=== PATIENT | male | born 1955 | race Caucasian/White ===

== ENCOUNTER → 2017-11-10 | Outpatient (CLI) | payer OTHER, SELFPAY ==
[~2017-11-10] MED LIST: ASPIR 8181 MG PO; ASPIRIN EC325 M1; ASPIRIN325 PO; ATORVASTATIN CA40 MG PO; B-12500 MCG; CYMBALTA60 MG PO; DOCUSATE SODIU100 MG; ENOXAPARIN30 MG/0.3; FOLIC ACID 1 MG1 MG; LISINOPRIL-HCT1 EAC1 PO; LYRICA300 MG PO; NEURONTIN600 MG PO; NITROGLYCERIN0.4 MG SUBLING; OXYCONTIN10 M1; OXYCONTIN20 M1 PO; OXYIR 5 MG CAPSU5 M1; PLAVIX 75 MG TA75 M1 PO; PROTONIX 20 MG20 M1 PO; TOPROL XL25 MG PO; TYLENOL325 MG PO; ZESTORETIC 20-1 EAC3 PO
--- NOTE | 2017-11-19 11:01 | SLEEP ---
[address] [address] SLEEP STUDY REPORT Name: PRASAD COOK Room: [facility]#: [id number] Admission: 11/10/17 Attend Phys: Oral Jones MD Discharge: Date of : 57 Report #: [id number] THIS REPORT FOR: //name// CC: Oral Jones This study has been reviewed in its entirety by a board certified sleep specialist DATE OF SERVICE: 11/10/2017 SPLIT NIGHT POLYSOMNOGRAPHY REQUESTING PHYSICIAN: Oral Jones MD. Polysomnography was performed using the split night protocol. The patient has a known history of obstructive sleep apnea and has been on CPAP. He continues to have difficulty falling asleep with daytime sleepiness. We have some nocturnal awakenings. Does not feel that his machine is working adequately. The patient's weight is 258 pounds with a BMI of 44.3. [place] sleepiness scale was 8/24. Total study time was 507 minutes. Total sleep time was 317 minutes. Sleep efficiency overall was 63%. 15% of the time was spent in REM sleep. The total diagnostic portion was a sleep time of 108 minutes. Sleep efficiency was 64%. He had no time in REM sleep during the diagnostic portion. During the diagnostic portion, there were no central apneas noted. He had a total of 18 obstructive apneas. There were total of 22 hypopneas. This resulted in apnea-hypopnea index of 22. Majority of the time was spent in the supine position. With the abnormalities noted, CPAP titration was then done. CPAP was initiated at 8 cm of water pressure and was titrated up to 14 cm of water pressure. At that level, there were no apneas noted. There was 1 hypopnea. This resulted in apnea-hypopnea index of 0.7. He did have some respiratory related arousals noted. O2 saturations were in the 90s. During the diagnostic portion, there were total of 96 periodic limb movements with 16 associated with an arousal. This resulted in a PLMS arousal of 8.9. However, during the CPAP titration, the number of periodic limb movements fell to 6 with only 2 associated with an arousal. During the diagnostic portion, O2 saturations generally remained greater than 90%. This was also true [place] [address] SLEEP STUDY REPORT Name: PRASAD COOK Room: [facility]#: [id number] Admission: 11/10/17 Attend Phys: Oral Jones MD Discharge: Date of : 57 Report #: [id number] IMPRESSION: 1. A split night study reveals at least moderate to severe sleep apnea with apnea-hypopnea index of 22. This may be underestimated given the lack of REM sleep. Use of CPAP at 14 cm of water pressure appears to be optimum for him. 2. Elevated periodic limb movements noted. However, these are improved with the use of the CPAP. RECOMMENDATIONS: 1. CPAP at 14 cm of water pressure. Note during the study, a medium F and P Simplus full face mask was utilized. There was a ramp of 3 with a C-flex of 10 noted. 2. Medically supervised weight loss program to achieve and maintain ideal body weight. <ELECTRONICALLY SIGNED> By: Janny Esparza MD 11/19/17 1101 0921 [id number] Esparza MD /nt
== END ==
LOC: M.SLEEPLAB 19:29
DX: G47.33 Obstructive sleep apnea (adult) (pediatric) (principal); J06.9 Acute upper respiratory infection, unspecified; I10 Essential (primary) hypertension; I25.10 Atherosclerotic heart disease of native coronary artery without angina pectoris; E78.5 Hyperlipidemia, unspecified; F17.210 Nicotine dependence, cigarettes, uncomplicated

== ENCOUNTER → 2018-05-12 | Outpatient (CLI) | payer OTHER | LOC: M.RAD 11:47 | DX: R07.1 Chest pain on breathing (principal) ==

== ENCOUNTER → 2019-01-12 | Day surgery (SDC) | payer OTHER, SELFPAY ==
[~2019-01-12] MED LIST changes: +HYDROCODONE-ACE15 ML PO
--- NOTE | ~2019-01-12 | OP ---
[facility] [address] [place] [address] OPERATIVE REPORT Name: PRASAD COOK ALDAIR Room: [facility].#: [id number] Admission: 01/12/19 Attend Phys: Herman Blum MD Discharge: Date of : 57 Report #: [id number] THIS REPORT FOR: //name// CC: Oral Blum DICTATED BY: Dougie Hsu DO DATE OF SERVICE: 01/12/2019 PREOPERATIVE DIAGNOSIS: Obesity and history of laparoscopic gastric band. POSTOPERATIVE DIAGNOSIS: Obesity and history of laparoscopic gastric band. SURGEON: Herman Blum M.D. [employer]ER [employer]: Dougie Hsu, PGY-4. OPERATION: Laparoscopic gastric band excision and port excision. ANESTHESIA: General and local. ESTIMATED BLOOD LOSS: 5. SPECIMEN: Gastric band and port. COMPLICATIONS: None. INDICATIONS: The patient is a 64-year-old male with history of laparoscopic gastric band placed in 2006. He had minimal weight loss after band placement. However, in the last year, he has had about 100 pounds of weight loss just by diet and exercise. He has not been using the band. He has started to have localized tenderness and pain at the port and presented for band excision. He was informed of the risks and benefits of band excision and decided to proceed with surgery. Of note, he was not interested in any further weight loss operations. DESCRIPTION OF PROCEDURE: After informed consent was obtained, the patient was brought to the operating room and placed in the supine position. SCDs were on and running. Preoperative antibiotics were delivered. The patient was prepped and draped in the usual sterile fashion. A surgical pause was held to confirm proper patient, procedure. General anesthesia had been administered with an ET tube. A #15 blade was used to make a skin incision in the left upper quadrant. Visiport was used with a 5 mm 0 degree scope. Once the peritoneum was breached, the abdomen was insufflated. Camera was introduced and intraperitoneal location was confirmed. There was no underlying injury. Two additional 5 [place] [address] OPERATIVE REPORT Name: PRASAD COOK Room: [facility].#: [id number] Admission: 01/12/19 Attend Phys: Herman Blum MD Discharge: Date of : 57 Report #: [id number] an 11 mm port were placed across the abdomen under direct visualization. Attention was turned to the epigastrium and the left lobe of the liver. A #15 blade was used to make a skin incision and the trocar of the 5 mm sleeve was used to create a tract through the peritoneum. The Jamey liver retractor was introduced and used to elevate the left lobe of the liver exposing the gastric band in the stomach well. The gastric band was elevated. A hook cautery was used to incise the capsule overlying the gastric band. The buckle was easily identified and cut using laparoscopic scissors. The band was then grasped with a gallbladder gallstone grasper and removed through the 11 mm incision along with the trocar and the trocar was then reintroduced. The tubing was cut using laparoscopic scissors internally. The site from which the port was removed, was hemostatic. There was no injury to the stomach. The Jamey retractor was let down. The ports were removed under direct visualization. No peritoneal bleeding was noted. The abdomen was desufflated. A 2 cm incision overlying the palpable port was made with a #15 blade. Dissection was carried down using cautery. The capsule was heavily calcified and the port was densely adherent to the surrounding tissues. This was circumferentially dissected using cautery until the port was removed and the remaining tubing, 0.25% Marcaine with epinephrine was used to inject all incisions. This site was closed in a layered fashion using 3-0 Vicryl and 4-0 Monocryl. The 11 mm port site, 0 Vicryl was used to close the fascia, and all skin was closed with 4-0 Monocryl. Wounds were cleansed and dressed with Dermabond. The patient was emerged from anesthesia, tolerated the procedure well. There were no complications and all counts were correct at the close of the case. By: 1045 [id number] Keerthi Blum MD /mabel
[2019-01-12 07:56] LABS: HEMATOCRIT 39.3 % (42.0-52.0); HEMOGLOBIN 13.3 gm/dL (14.0-18.0); MCH 28.9 pg (26.0-34.0); MCV 85.2 fL (80.0-100.0); MPV 8.1 fl. (7.2-11.1); RBC 4.61 mil/uL (4.50-6.00); WBC 5.5 thou/uL (4.0-11.0)
[2019-01-12 08:06] LABS: CALCIUM 9.2 mg/dL (8.5-10.1); CREATININE 0.9 mg/dL (0.6-1.3)
[2019-01-12 08:09] LABS: ALBUMIN 3.6 g/dL (3.4-5.0); TOTAL BILIRUBIN 0.7 mg/dL (<0.1-1.0); TOTAL PROTEIN 7.1 g/dL (6.4-8.2)
--- NOTE | 2019-01-12 18:04 | EKG ---
[place] [address] ELECTROCARDIOGRAM REPORT Name: PRASAD COOK Room: [facility]#: [id number] Admission: 01/12/19 Attend Phys: Herman Blum MD Discharge: Date of : 57 Report #: [id number] THIS REPORT FOR: //name// [facility] Test Date: 2019-01-12 Test Time: 07:19:27 Pat Name: PRASAD COOK Department: Room: Gender: M Homogenizer Operator: : 1955 Requested By: Raj Villa Order Number: [id number] Reading MD: Stephon Rodrigues Measurements Intervals [place] Rate: 62 P: -6 SD: 188 QRS: -18 QRSD: 106 T: 4 QT: 394 QTc: 400 Interpretive Statements Sinus rhythm Borderline left axis deviation Abnormal R-wave progression, early transition Compared to ECG 03/24/2017 11:31:47 Right ventricular hypertrophy no longer present Electronically Signed On 01-12-2019 18:04:28 CDT by Stephon Rodrigues [email or web address] <ELECTRONICALLY SIGNED> By: Su Rodrigues MD, [facility] 01/12/19 1804 8 8 Su Rodrigues MD, [facility] /EPI
== END | disposition home or self-care (01) ==
LOC: M.SUR 07:00
PROVIDERS: Surgery
DX: E66.09 Other obesity due to excess calories (principal); Z98.84 Bariatric surgery status; Z88.8 Allergy status to other drugs, medicaments and biological substances; Z79.899 Other long term (current) drug therapy; Z79.891 Long term (current) use of opiate analgesic; Z98.890 Other specified postprocedural states

== ENCOUNTER 2020-01-01 13:12 | Observation (INO) | payer MEDICARE ==
[~2020-01-01] VITALS: Ht 162.6 cm; Wt 97.8 kg
[2020-01-01 13:16] VITALS: BP 222/90
[2020-01-01 13:42] LABS: ABSOLUTE BASOPHILS 0.1 thou/uL (0.0-0.2); ABSOLUTE EOSINOPHILS 0.1 thou/uL (0.0-0.7); ABSOLUTE LYMPHOCYTES 1.6 thou/uL (0.8-5.3); ABSOLUTE MONOCYTES 0.6 thou/uL (0.0-1.2); ABSOLUTE NEUTROPHILS 6.3 thou/uL (1.6-8.1); BASOPHILS 0.8 %; EOSINOPHILS 1.3 %; HEMATOCRIT 42.5 % (42.0-52.0); HEMOGLOBIN 14.6 gm/dL (14.0-18.0); MCH 29.8 pg (26.0-34.0); MCHC 34.4 g/dL (28.0-37.0); MCV 86.4 fL (80.0-100.0); MONOCYTES 6.4 %; MPV 8.6 fl. (7.2-11.1); NUCLEATED RBCS 0 /100WBC; PLATELET COUNT* 247 thou/uL (150-400); POLYS 73.5 %; RBC 4.91 mil/uL (4.50-6.00); RDW-CV 15.6 % (10.5-14.5); WBC 8.6 thou/uL (4.0-11.0)
[2020-01-01 13:53] LABS: CALCIUM 9.4 mg/dL (8.5-10.1); CREATININE 1.1 mg/dL (0.6-1.3); POTASSIUM 3.7 mmol/L (3.5-5.1)
[2020-01-01 14:02] LABS: ALBUMIN 4.3 g/dL (3.4-5.0); MAGNESIUM 2.1 mg/dL (1.8-2.4); TOTAL BILIRUBIN 1.3 mg/dL (<0.1-1.0); TOTAL PROTEIN 8.4 g/dL (6.4-8.2)
[2020-01-01 18:08] VITALS: BP 159/70
[2020-01-01 18:30] VITALS: BP 192/86
[2020-01-01 19:58] VITALS: BP 163/99
[2020-01-02] VITALS (12 sets, daily range): BP systolic 125–179; BP diastolic 58–77
[2020-01-02 05:37] LABS: ABSOLUTE BASOPHILS 0.1 thou/uL (0.0-0.2); ABSOLUTE EOSINOPHILS 0.2 thou/uL (0.0-0.7); ABSOLUTE LYMPHOCYTES 1.7 thou/uL (0.8-5.3); ABSOLUTE MONOCYTES 0.6 thou/uL (0.0-1.2); ABSOLUTE NEUTROPHILS 4.9 thou/uL (1.6-8.1); BASOPHILS 0.7 %; EOSINOPHILS 3.2 %; HEMATOCRIT 38.5 % (42.0-52.0); HEMOGLOBIN 13.2 gm/dL (14.0-18.0); LYMPHOCYTES 23.1 %; MCH 29.2 pg (26.0-34.0); MCHC 34.2 g/dL (28.0-37.0); MCV 85.5 fL (80.0-100.0); MONOCYTES 7.6 %; MPV 8.3 fl. (7.2-11.1); NUCLEATED RBCS 0 /100WBC; PLATELET COUNT* 231 thou/uL (150-400); POLYS 65.4 %; WBC 7.5 thou/uL (4.0-11.0)
[2020-01-02 05:54] LABS: CALCIUM 8.5 mg/dL (8.5-10.1); CREATININE 0.8 mg/dL (0.6-1.3); POTASSIUM 3.6 mmol/L (3.5-5.1)
[2020-01-02 09:50] LABS: CHOLESTEROL 173 mg/dL (<200); HDL CHOLESTEROL 37 mg/dL (>40); LDL CHOLESTEROL 106 mg/dL (<100); TC:HDL 4.7 Ratio (Not establshd); TRIGLYCERIDE 151 mg/dL (<150); VLDL 30 mg/dL (<40)
[2020-01-02 09:51] LABS: SERUM ASSESSMENT Clear
--- NOTE | 2020-01-02 16:22 | EKG ---
[place] [address] ELECTROCARDIOGRAM REPORT Name: SO COOKNitesh QUINTEROS Room: [address] M.R.#: [id number] Admission: 01/01/20 Attend Phys: Raymundo Espinoza, Discharge: Date of : 57 Date of Service: 01/01/20 1318 Report #: [id number] THIS REPORT FOR: //name// [facility] ED Test Date: 2020-01-01 Test Time: 13:18:53 Pat Name: PRASAD COOK Department: Room: [facility] Gender: M Assembly Operator: CCD : 1955 Requested By: Antonio Reyes Order Number: [id number] MD: Talha Shaw Measurements Intervals [place] Rate: 73 P: 0 [place]: 136 QRS: -11 QRSD: 106 T: 75 QT: 382 QTc: 421 Interpretive Statements Sinus rhythm RSR' in V1 or V2, probably normal variant Baseline wander in lead(s) II,III,aVF,V2,V3,V4 Compared to ECG 01/12/2019 07:19:27 RSR' in V1 or V2 now present Artifact is noted Electronically Signed On 01-02-2020 16:22:22 CDT by Talha Shaw [email or web address] <ELECTRONICALLY SIGNED> By: Talha Shaw MD, [facility] 01/02/20 1622 1318 1318 Talha Shaw MD, [facility] /EPI
--- NOTE | 2020-01-02 18:08 | CON ---
[address] [address] CONSULTATION Name: PRASAD COOK ALDAIR Room: [address] M.R.#: [id number] Admission: 01/01/20 Attend Phys: Raymundo Espinoza MD Discharge: Date of : 57 Report #: [id number] THIS REPORT FOR: //name// cc: Bel Patricio MD, Lin W. MD ~ THIS REPORT FOR: //name// CC: Raymundo Ventura MD [facility] Bel Patricio MD CARDIOLOGY CONSULTATION INDICATION: Chest pain. HISTORY OF PRESENT ILLNESS: The patient is a very pleasant 64-year-old gentleman with a history of coronary artery disease. The patient has a history of previous percutaneous coronary intervention to the proximal right coronary artery. This was in 2016. Catheterization in 2017 showed the stent to be patent with moderate nonocclusive disease otherwise. The patient has normal LV systolic function by noninvasive studies. He was admitted to the hospital with chest pressure over the left precordium radiating to the back as well as a headache radiating to the neck. He has had some left arm pain with this as well. The pain has been ongoing for the past week and intermittent for the past month. He had partial relief with nitroglycerin in the Emergency Room. EKG shows sinus rhythm without acute ST or T-wave abnormalities. Cardiac enzymes thus far unremarkable. He denies any significant shortness of breath or diaphoresis with the discomfort. PAST MEDICAL HISTORY: 1. Coronary artery disease. 2. Hyperlipidemia. 3. Hypertension. 4. Obesity, status post lap band surgery. 5. Obstructive sleep apnea. 6. Glucose intolerance. 7. History of knee replacement. 8. Carpal tunnel release. HOME MEDICATIONS: Lisinopril/hydrochlorothiazide 20/12.5 one tablet daily. ALLERGIES: RANEXA. FAMILY HISTORY: [place] [address] CONSULTATION Name: PRASAD COOK ALDAIR [address] [id number] Admission: 01/01/20 Attend Phys: Raymundo Espinoza MD Discharge: Date of : 57 Report #: [id number] SOCIAL HISTORY: The patient is . Quit smoking many years ago. Drinks alcohol rarely. REVIEW OF SYSTEMS: A 14-point review of systems as per HPI, otherwise unremarkable. PHYSICAL EXAMINATION: VITAL SIGNS: Stable. Blood pressure 179/77, pulse 77 and regular. GENERAL: This is a pleasant gentleman in no distress. Mood and affect appropriate. HEENT: Extraocular muscles intact. Mucous membranes are moist. NECK: Shows no jugular venous distention. There are no carotid bruits. CHEST: Reveals clear lung hidalgo without wheezes or rales. CARDIOVASCULAR: Reveals a regular rhythm without gallop or murmur. ABDOMEN: Reveals normal bowel sounds. The abdomen is soft, nontender. EXTREMITIES: Shows no edema. SKIN: Warm and dry. LABORATORY DATA: A 12-lead EKG shows sinus rhythm with no significant ST or T-wave abnormality. LABORATORY DATA: Labs are reviewed and unremarkable. Troponins are less than 0.06 on 3 separate occasions. IMPRESSION AND RECOMMENDATIONS: 1. Chest discomfort with features to suggest angina. He has a history of coronary artery disease with moderate disease previously. We will proceed with angiography to further define coronary anatomy and possible intervention pending those results. 2. Coronary artery disease. Would resume daily aspirin and statin agent for risk factor modification. 3. Hypertension. Add additional medications to improve blood pressure. 4. Hyperlipidemia. We will check fasting lipid profile. <ELECTRONICALLY SIGNED> By: Celso Olvera MD, FACC 01/02/20 1808 0936 [id number] Olvera MD, FACC /nt
[2020-01-03] VITALS (7 sets, daily range): BP systolic 138–172; BP diastolic 63–69
[2020-01-03 05:34] LABS: ALBUMIN 3.4 g/dL (3.4-5.0); CALCIUM 8.8 mg/dL (8.5-10.1); CREATININE 0.8 mg/dL (0.6-1.3); POTASSIUM 3.6 mmol/L (3.5-5.1); TOTAL BILIRUBIN 1.5 mg/dL (<0.1-1.0)
[2020-01-03] MEDS ORDERED: ASPIR 8181 MG PO (09:02)
[2020-01-03] MEDS ORDERED: EFFIENT10 MG PO (09:02)
--- NOTE | 2020-01-03 09:49 | CARD ---
[address] [address] CARDIAC CATH REPORT Name: PRASAD COOK ALDAIR Room: [address] M.R.#: [id number] Admission: 01/01/20 Attend Phys: Raymundo Espinoza MD Discharge: Date of : 57 Report #: [id number] THIS REPORT FOR: //name// cc: Bel Patricio MD, Lin W. MD ~ APPROVED REPORT Study performed: 01/02/2020 15:25:07 Patient Details Patient Status: In-Patient Room #: The patient is a 64 year-old male Event Personnel Celso Olvera Test Consultant, Adelso Cunha RN Interlocking Tower Operator, Kahlil Urias CLERICAL STOCK INSPECTOR Monitor, Rebekah Sood RTR Scrub Talha Shaw senior safety management consultant Procedures Performed Left Heart Cath w/or w/o Coronaries C; PCI with deployment of drug-eluting stent in the proximal LAD Indication Unstable angina Risk Factors Hypercholesterolemia, Hypertension Previous Procedures/Diagnoses Previous PCI Admission/Lab Medications/Medications given during procedure Hydralazine (Apresoline) IV 10 mg, Angiomax IV 15 ml, Angiomax Drip IV 34.4 ml per hr, Zofran (Ondansetron) IV 4 mg, Effient PO 60 mg Procedure Narrative The patient was brought electively to the Cardiac Catheterization Laboratory and was prepped and draped in a sterile manner. The right femoral was infiltrated with 2% Lidocaine subcutaneous anesthesia. A 6F [place] sheath was inserted into the right femoral artery. Coronary angiography was performed using coronary diagnostic catheters. The right coronary system was accessed and visualized with a 6F JR4 catheter. The left [place] [address] CARDIAC CATH REPORT Name: PRASAD COOK ALDAIR Room: [address]#: [id number] Admission: 01/01/20 Attend Phys: Raymundo Espinoza MD Discharge: Date of : 57 Report #: [id number] visualized with a JL4 6fr catheter. The left ventricle was accessed and visualized with a 6 Fr Straight Pigtail catheter. Left ventricular/Aortic Valve gradient assessed via catheter pullback. Left ventriculogram was performed in CORRIGAN projection. Pre-demployment femoral angiogram was performed . Closure device was deployed with a 6 Fr Angioseal STS. The patient tolerated the procedure well and there were no complications associated with the procedure. There was no hematoma. Intraoperative Conscious Sedation Sedation start time: 16:25 Case end Time: 17:07 Fentanyl 50 mcg Versed 2 mg Fluoro Time: 9.5 minutes Dose: DAP [id number] cGycm2 2518 mGy Contrast Type and Amount: Visipaque 230 ml Diagnostic Cath Left Main 0% narrowing LAD 75% irregular tubular proximal LAD stenosis Circumflex Nondominant vessel with 40% proximal and mid vessel narrowing Right Coronary Dominant vessel with 50% ostial and 30% tubular proximal in-stent restenosis Left Ventriculography The left ventricle is normal in size with normal contractility. The left ventricular ejection fraction is estimated to be 65%. Left ventricular wall motion abnormalities are not present. There is no mitral insufficiency. Hemodynamics The aortic pressure is 168/59 mmHg with a mean of 97 mmHg. The left ventricular pressure is 170/3 mmHg with a mean of mmHg. The left ventricular end diastolic pressure is 12 mmHg. There was no gradient across the aortic valve upon pullback. PCI Technique Lesion Anticoagulation was achieved with Angiomax. Patient was preloaded with Angiomax IV 15 ml. Percutaneous coronary intervention was performed on the proximal left anterior descending artery segment. The lesion stenosis prior to intervention was 75% with WILLIAM 3 flow. A 6F XB LAD 3.5 Guide Catheter was used to engage the Left main ostium. A BMW 190cm Interventional Guidewire [place] [address] CARDIAC CATH REPORT Name: COOKPRASAD ALDAIR Room: [address]#: [id number] Admission: 01/01/20 Attend Phys: Raymundo Espinoza MD Discharge: Date of : 57 Report #: [id number] lesion. BALLOON DILATION A Balloon catheter Trek RX 2.5 X 15 was inserted and inflated up to 12.00atm for 9seconds. Additional Inflation: 12.00atm for 8seconds. STENT DEPLOYMENT A drug-eluting stent Xience Swati 2.36E03cm was inserted and inflated up to 16.00atm for 11seconds. Additional Inflation: 18.00atm for 11seconds. Final angiography reveals 0 % stenosis with WILLIAM 3 flow. Conclusion 1. Significant coronary artery disease characterized by the following: A 75% tubular irregular proximal LAD stenosis B 40% proximal and mid circumflex narrowing, this being a nondominant vessel C dominant right coronary with 50% ostial and 30% tubular proximal right coronary in-stent restenosis 2. Normal left ventricular systolic function, estimated ejection fraction 65% 3. Moderate systemic systolic hypertension 4. Successful PCI with deployment of a drug-eluting stent at site of 75% tubular proximal LAD stenosis with 0% residual narrowing and WILLIAM-3 flow to the distal vessel Recommendations Cardiac Risk Reduction Program Aggressive Medical Therapy Medications Administered Aspirin (any) [place] [address] CARDIAC CATH REPORT Name: COOKPRASAD ALDAIR Room: [address]#: [id number] Admission: 01/01/20 Attend Phys: Raymundo Espinoza MD Discharge: Date of : 57 Report #: [id number] Diagnostic Cath Approved by: Celso Olvera MD Date/Time: 01/03/2020 09:48:21 <ELECTRONICALLY SIGNED> By: Talha Shaw MD, [facility] 01/03/20 0949 0949 0949Talha Shaw MD, [facility] /INF
--- NOTE | 2020-01-03 15:21 | EKG ---
[place] [address] ELECTROCARDIOGRAM REPORT Name: SO COOKNitesh QUINTEROS Room: [address] M.R.#: [id number] Admission: 01/01/20 Attend Phys: Raymundo Espinoza, Discharge: 01/03/20 Date of : 57 Date of Service: 01/02/20 1905 Report #: [id number] THIS REPORT FOR: //name// [facility] Test Date: 2020-01-02 Test Time: 19:05:29 Pat Name: PRASAD COOK Department: Room: [address] Gender: M Biomaterials Engineer: : 1955 Requested By: Celso Olvera Order Number: [id number] Reyna MD: Talha Shaw Measurements Intervals [place] Rate: 78 P: 12 [place]: 153 QRS: -24 QRSD: 106 T: 27 QT: 371 QTc: 423 Interpretive Statements Sinus rhythm Borderline left axis deviation RSR' in V1 or V2, right VCD Compared to ECG 01/01/2020 13:18:53 Minor IVCD right persists Electronically Signed On 01-03-2020 15:21:37 CDT by Talha Shaw [email or web address] <ELECTRONICALLY SIGNED> By: Talha Shaw MD, FAC 01/03/20 1521 190 190 Talha Shaw MD, FAC /EPI
--- NOTE | 2020-01-03 15:23 | EKG ---
[place] [address] ELECTROCARDIOGRAM REPORT Name: JOYCEPRASADNietsh QUINTEROS Room: [address] M..#: [id number] Admission: 01/01/20 Attend Phys: Raymundo Espinoza, Discharge: 01/03/20 Date of : 57 Date of Service: 01/03/20 0839 Report #: [id number] THIS REPORT FOR: //name// [facility] Test Date: 2020-01-03 Test Time: 08:39:04 Pat Name: PRASAD COOK Department: Room: [address] Gender: M Soil Science Teacher: : 1955 Requested By: Celso Olvera Order Number: [id number] Reyna MD: Talha Shaw Measurements Intervals [place] Rate: 73 P: 16 [place]: 172 QRS: -15 QRSD: 106 T: 7 QT: 390 QTc: 430 Interpretive Statements Sinus rhythm Borderline left axis deviation RSR' in V1 or V2, right VCD Compared to ECG 01/02/2020 19:05:29 No significant changes Electronically Signed On 01-03-2020 15:23:06 CDT by Talha Shaw [email or web address] <ELECTRONICALLY SIGNED> By: Talha Shaw MD, [facility] 01/03/20 1523 0839 0839 Talha Shaw MD, [facility] /EPI
== END 2020-01-03 12:35 | disposition home or self-care (01) ==
LOC: M.ERS 13:12 → M.TBA-ER 14:39 → M.2W 14:39
PROVIDERS: Emergency Medicine Emergency Medical Services; Internal Medicine Cardiovascular Disease; ADMIT Internal Medicine; ATTEND Internal Medicine
DX: I25.110 Atherosclerotic heart disease of native coronary artery with unstable angina pectoris (principal); I10 Essential (primary) hypertension; R51 Headache; M54.2 Cervicalgia; F32.9 Major depressive disorder, single episode, unspecified; K22.70 Barrett's esophagus without dysplasia; G47.33 Obstructive sleep apnea (adult) (pediatric); E78.5 Hyperlipidemia, unspecified; E66.9 Obesity, unspecified; Z68.37 Body mass index [BMI] 37.0-37.9, adult; Z96.651 Presence of right artificial knee joint; Z79.82 Long term (current) use of aspirin; Z79.899 Other long term (current) drug therapy; Z20.828 Contact with and (suspected) exposure to other viral communicable diseases; Z95.818 Presence of other cardiac implants and grafts; Z87.891 Personal history of nicotine dependence

== ENCOUNTER → 2020-02-08 | Outpatient (CLI) | payer MEDICARE ==
[~2020-02-08] MED LIST changes: +EFFIENT10 MG PO
[2020-02-08 11:09] LABS: ABSOLUTE BASOPHILS 0.1 thou/uL (0.0-0.2); ABSOLUTE EOSINOPHILS 0.3 thou/uL (0.0-0.7); ABSOLUTE LYMPHOCYTES 1.5 thou/uL (0.8-5.3); ABSOLUTE MONOCYTES 0.5 thou/uL (0.0-1.2); EOSINOPHILS 4.9 %; HEMATOCRIT 40.1 % (42.0-52.0); HEMOGLOBIN 13.9 gm/dL (14.0-18.0); LYMPHOCYTES 23.7 %; MCH 30.2 pg (26.0-34.0); MCHC 34.6 g/dL (28.0-37.0); MCV 87.2 fL (80.0-100.0); MONOCYTES 7.1 %; MPV 7.8 fl. (7.2-11.1); NUCLEATED RBCS 0 /100WBC; PLATELET COUNT* 226 thou/uL (150-400); POLYS 63.3 %; RBC 4.61 mil/uL (4.50-6.00); RDW-CV 14.6 % (10.5-14.5); WBC 6.4 thou/uL (4.0-11.0)
[2020-02-08 11:12] LABS: URINE BILIRUBIN NEGATIVE (Negative); URINE BLOOD 3+ (Negative); URINE CLARITY CLEAR; URINE COLOR YELLOW; URINE GLUCOSE-RANDOM NEGATIVE (Negative); URINE KETONES NEGATIVE (Negative); URINE LEUKOCYTES-REFLEX NEGATIVE (Negative); URINE NITRITE-REFLEX NEGATIVE (Negative); URINE PROTEIN NEGATIVE (Negative); URINE SPECIFIC GRAVITY 1.015 (1.005-1.030); URINE UROBILINOGEN 0.2 E.U./dl (0.2-1.0)
[2020-02-08 11:18] LABS: BACTERIA-REFLEX 1-9 Few /HPF (None Seen); SQUAMOUS 0-3 Few /LPF (0-3); URINE WBC-REFLEX None Seen /HPF (0-5)
[2020-02-08 11:19] LABS: CASTS None Seen /LPF (None Seen); CRYSTALS None Seen /LPF (None Seen); MUCUS None Seen strn/LPF (None Seen)
== END ==
LOC: M.LAB 10:53
PROVIDERS: ATTEND Registered Nurse
DX: I25.10 Atherosclerotic heart disease of native coronary artery without angina pectoris (principal); R31.9 Hematuria, unspecified; I10 Essential (primary) hypertension

== ENCOUNTER → 2020-02-13 | Outpatient (CLI) | payer MEDICARE ==
[2020-02-13 12:45] LABS: CALCIUM 9.5 mg/dL (8.5-10.1); CREATININE 1.1 mg/dL (0.6-1.3); POTASSIUM 4.1 mmol/L (3.5-5.1)
== END ==
LOC: M.LAB 12:19
PROVIDERS: ATTEND Urology
DX: R31.0 Gross hematuria (principal)

== ENCOUNTER → 2020-02-15 | Outpatient (CLI) | payer MEDICARE, SELFPAY | LOC: M.LAB 02-13 12:30 → M.CT 13:00 | PROVIDERS: ATTEND Urology | DX: K57.30 Diverticulosis of large intestine without perforation or abscess without bleeding (principal); N40.0 Benign prostatic hyperplasia without lower urinary tract symptoms; K76.89 Other specified diseases of liver; R31.0 Gross hematuria; I70.0 Atherosclerosis of aorta ==

== ENCOUNTER → 2020-04-10 | Outpatient (CLI) | payer MEDICARE, SELFPAY ==
[2020-04-10 11:15] LABS: ALBUMIN 3.6 g/dL (3.4-5.0); ALKALINE PHOSPHATASE 77 U/L (46-116); CHOLESTEROL 199 mg/dL (<200); CK-MB MASS 1.5 ng/mL (<0.5-3.6); DIRECT BILIRUBIN 0.1 mg/dL (<0.1-0.3); HDL CHOLESTEROL 41 mg/dL (>40); LDL CHOLESTEROL 122 mg/dL (<100); SGOT 11 U/L (15-37); SGPT 25 U/L (30-65); TC:HDL 4.9 Ratio (Not establshd); TOTAL BILIRUBIN 0.6 mg/dL (<0.1-1.0); TOTAL PROTEIN 7.5 g/dL (6.4-8.2); TRIGLYCERIDE 183 mg/dL (<150); VLDL 37 mg/dL (<40)
[2020-04-10 11:17] LABS: SERUM ASSESSMENT Clear
== END ==
LOC: M.LAB 10:25
PROVIDERS: ATTEND Nurse Practitioner
DX: E78.5 Hyperlipidemia, unspecified (principal)

== ENCOUNTER → 2020-12-26 | Outpatient (CLI) | payer OTHER | LOC: M.LAB 05:57 | PROVIDERS: ATTEND Anesthesiology | DX: E87.6 Hypokalemia (principal) ==